=== PATIENT | female | born 1985 | race Hispanic/Latino ===

== ENCOUNTER 2023-08-16 07:00 | Outpatient (CLI) | payer OTHER | END 2023-08-16 07:01 | disposition home or self-care (01) | LOC: BICULT 07:00 | PROVIDERS: ATTEND Internal Medicine Gastroenterology | DX: K21.9 Gastro-esophageal reflux disease without esophagitis (principal); K58.9 Irritable bowel syndrome, unspecified; M51.26 Other intervertebral disc displacement, lumbar region; K90.41 Non-celiac gluten sensitivity; R14.3 Flatulence; Z33.1 Pregnant state, incidental | CPT/HCPCS: 76700 ==